=== PATIENT | male | born 1985 | race Caucasian/White ===

== ENCOUNTER 2018-05-19 10:58 | Emergency (ER) | payer BC ==
[2018-05-19 11:26] VITALS: TEMP 98.2; O2SAT 99
[2018-05-19 11:27] VITALS: BMI 33.6
[2018-05-19] MEDS ORDERED: Lidocaine/Epi 1% 1:100000 20 ML IJ STA (11:47)
[2018-05-19] MEDS ORDERED: Lidocaine 1% w Epi 1:100,000 Inj ONE (11:51)
--- NOTE | 2018-05-19 12:04 | ED PDOC ---
HPI: Wound Care - HPI Time Seen by Provider: 05/19/18 11:37 Chief Complaint (Nursing): Wound Check Chief Complaint (Provider): Wound Check History Per: Patient Exam Limitations: no limitations Location Of Injury: Left: Abdomen (abdominal wall) Additional Complaint(s): 32 years old male with no significant medical history presents to the ED for evaluation of infection to left lower abdominal wall that started initially as an ingrown hair. Patient reports redness, swelling and pain developed and he went to urgent care on Tuesday, where he was started on antibiotics. He states a blister formed later on top of redness and drained fluid every day. Patient reports fluid drainage was small and he is here because he is not sure if symptoms are improving. He denies any chills, fever, nausea, vomiting and abdominal pain. PMD: non provided Past Medical History Reviewed: Historical Data, Nursing Documentation, Vital Signs Vital Signs: Last Vital Signs Temp 98.2 F 05/19/18 11:24 Pulse 93 H 05/19/18 11:24 Resp 22 05/19/18 11:24 BP 158/99 H 05/19/18 11:24 Pulse Ox 99 05/19/18 11:24 - Medical History PMH: No Chronic Diseases - Surgical History Surgical History: No Surg Hx - Family History Family History: States: Unknown Family Hx - Social History Current smoker - smoking cessation education provided: No Alcohol: None Drugs: Denies - Allergies Allergies/Adverse Reactions: Allergies Allergy/AdvReac Type Severity Reaction Status Date / Time No Known Allergies Allergy Unverified 04/18/13 09:10 Review of Systems ROS Statement: Except As Marked, All Systems Reviewed And Found Negative Constitutional: Negative for: Fever, Chills Gastrointestinal: Positive for: Other (Left lower abdominal wall infection). Negative for: Nausea, Vomiting, Abdominal Pain Physical Exam - Reviewed Nursing Documentation Reviewed: Yes Vital Signs Reviewed: Yes - Physical Exam Appears: Positive for: Non-toxic, No Acute Distress Head Exam: Positive for: ATRAUMATIC, NORMOCEPHALIC Gastrointestinal/Abdominal: Positive for: Other (Area of induration with mild edema near the center. Loss of skin with small opening and little fluctance near induration. No discharge. ) Neurologic/Psych: Positive for: Alert, Oriented (x3) - ECG O2 Sat by Pulse Oximetry: 99 (RA) Pulse Ox Interpretation: Normal Procedure: Wound Repair - Time Performed Time Performed: 12:15 - Procedure Procedure: Wound Repair: I&D - Anesthetic Technique Local/Regional Anesthetic:: Lidocaine 1% w/epi Medical Decision Making Medical Decision Making: Time: 114 Initial Impression: Cellulitits, possible abscess Initial Plan: --Lidocaine/Epi 1% 10 ml IJ --I & D 1230 Patient was numbed with Lidocaine/Epi 1%. Bloody fluid and purulent drained after abscess I&D. Wound was packed with 1 inch stripes. Patient is instructed to follow up on Tuesday for wound check. Patient is feeling better, is medically stable, and requires no further treatment in the ED at this time. ----- Scribe Attestation: Documented by Chelsea Corona, acting as a scribe for Apolonia Mackenzie MD. Provider Scribe Attestation: All medical record entries made by the Scribe were at my direction and personally dictated by me. I have reviewed the chart and agree that the record accurately reflects my personal performance of the history, physical exam, medical decision making, and the department course for this patient. I have also personally directed, reviewed, and agree with the discharge instructions and disposition. Disposition - Clinical Impression Clinical Impression: Abscess, abdomen - Patient ED Disposition Is Patient to be Admitted: No Doctor Will See Patient In The: Office Counseled Patient/Family Regarding: Diagnosis, Need For Followup - Disposition Disposition: Routine/Home Disposition Time: 12:30 Condition: STABLE Additional Instructions: Continue with Clindamycin that is prescribed by urgent care. Followup in office or ER in 2-3 days. Instructions: Abscess Incision and Drainage Forms: [email or web address] (Serbian) - POA Present On Arrival: None
[2018-05-19 14:49] VITALS: BP 150/92; PULSE 90; RESP 18
== END 2018-05-19 14:05 | disposition home or self-care (01) ==
LOC: H.ER 10:58
DX: L02.211 Cutaneous abscess of abdominal wall (principal)

== ENCOUNTER 2018-05-21 11:20 | Emergency (ER) | payer BC ==
[2018-05-21 11:20] VITALS: BMI 33.6
[2018-05-21 11:24] VITALS: TEMP 98.2
--- NOTE | 2018-05-21 12:04 | ED PDOC ---
HPI: Wound Care - HPI Time Seen by Provider: 05/21/18 11:25 Chief Complaint (Nursing): Wound Check Chief Complaint (Provider): Wound Check History Per: Patient Exam Limitations: no limitations Location Of Injury: Left: Abdomen Additional Complaint(s): 32 years old male presents to the ED for wound check. Patient reports he had I& D to left abdominal wall on 05/19/18. He offers no medical complaints. PMD: non provided Past Medical History Reviewed: Historical Data, Nursing Documentation, Vital Signs Vital Signs: Last Vital Signs Temp 98.2 F 05/21/18 11:22 Pulse 86 05/21/18 11:22 Resp 17 05/21/18 11:22 BP 147/101 H 05/21/18 11:22 Pulse Ox 97 05/21/18 11:22 - Medical History PMH: No Chronic Diseases - Surgical History Surgical History: No Surg Hx - Family History Family History: States: Unknown Family Hx - Social History Current smoker - smoking cessation education provided: No Alcohol: Social Drugs: Denies - Allergies Allergies/Adverse Reactions: Allergies Allergy/AdvReac Type Severity Reaction Status Date / Time No Known Allergies Allergy Verified 05/21/18 11:59 Review of Systems ROS Statement: Except As Marked, All Systems Reviewed And Found Negative Constitutional: Negative for: Fever Gastrointestinal: Negative for: Abdominal Pain Physical Exam - Reviewed Nursing Documentation Reviewed: Yes Vital Signs Reviewed: Yes - Physical Exam Appears: Positive for: Non-toxic, No Acute Distress Head Exam: Positive for: ATRAUMATIC, NORMOCEPHALIC Skin: Positive for: Normal Color, Warm, Dry Gastrointestinal/Abdominal: Positive for: Normal Exam, Soft, Other (Left lower abdominal wall incision with packing in place, wound is dry. No crepitus, drainage or discharge.) Neurologic/Psych: Positive for: Alert, Oriented (x3) - ECG O2 Sat by Pulse Oximetry: 97 (RA) Pulse Ox Interpretation: Normal Medical Decision Making Medical Decision Making: Time: 1200 Changed packing. Patient tolerated procedure well and stable for discharge. ----- Scribe Attestation: Documented by Chelsea Corona, acting as a scribe for Renate Crooks MD. Provider Scribe Attestation: All medical record entries made by the Scribe were at my direction and personally dictated by me. I have reviewed the chart and agree that the record accurately reflects my personal performance of the history, physical exam, medical decision making, and the department course for this patient. I have also personally directed, reviewed, and agree with the discharge instructions and disposition. Disposition - Clinical Impression Clinical Impression: Change or removal of wound packing - Disposition Disposition: Routine/Home Disposition Time: 12:02 Condition: GOOD Additional Instructions: RETURN TO ED IN 2-3 DAYS FOR PACKING CHANGE. Instructions: Abscess Incision and Drainage (DC)
[2018-05-21 12:26] VITALS: BP 155/98; PULSE 85; RESP 18
[2018-05-23 14:25] VITALS: O2SAT 97
== END 2018-05-21 12:23 | disposition home or self-care (01) ==
LOC: H.ER 11:20
DX: Z48.00 Encounter for change or removal of nonsurgical wound dressing (principal)

== ENCOUNTER 2018-05-24 16:55 | Emergency (ER) | payer BC ==
[2018-05-24 16:55] VITALS: BMI 33.6
[2018-05-24 17:11] VITALS: BP 148/104; PULSE 84; RESP 18; TEMP 98.3; O2SAT 99
--- NOTE | 2018-05-24 17:59 | ED PDOC ---
HPI: Wound Care - HPI Time Seen by Provider: 05/24/18 17:33 Chief Complaint (Nursing): Wound Check Chief Complaint (Provider): Wound check History Per: Patient Exam Limitations: no limitations Onset/Duration Of Symptoms: Days (x1 week) Current Symptoms Are (Timing): Still Present Location Of Injury: Posterior: Abdomen Additional Complaint(s): Tarun Zaldivar is a 32 year old male, with no significant past medical history, who presents to the emergency department for wound check. Patient states over x1 week ago he developed an abscess, he was seen at an urgent care and was prescribed a 10-day course of Clindamycin which he already finished. Patient was seen 05/19 here, he had an I&D and the wound packed. Patient was seen again on 05/21 for wound repacking and was advised to come today for follow up. He denies any fever, chills or other medical complaints. PMD: None provided. Past Medical History Reviewed: Historical Data, Nursing Documentation, Vital Signs Vital Signs: Last Vital Signs Temp 98.3 F 05/24/18 17:08 Pulse 84 05/24/18 17:08 Resp 18 05/24/18 17:08 BP 148/104 H 05/24/18 17:08 Pulse Ox 99 05/24/18 17:08 - Medical History PMH: No Chronic Diseases - Surgical History Surgical History: No Surg Hx - Family History Family History: States: Unknown Family Hx - Allergies Allergies/Adverse Reactions: Allergies Allergy/AdvReac Type Severity Reaction Status Date / Time No Known Allergies Allergy Verified 05/24/18 17:11 Review of Systems ROS Statement: Except As Marked, All Systems Reviewed And Found Negative Constitutional: Positive for: Other (wound check) Physical Exam - Reviewed Nursing Documentation Reviewed: Yes Vital Signs Reviewed: Yes - Physical Exam Appears: Positive for: No Acute Distress Head Exam: Positive for: ATRAUMATIC, NORMOCEPHALIC Skin: Positive for: Normal Color, Warm, Dry Eye Exam: Positive for: Normal appearance Neck: Positive for: Painless ROM Gastrointestinal/Abdominal: Positive for: Other (well healing wound to left lower abdomen with minimal surrounding induration but no active drainage or fluctuance) Extremity: Positive for: Normal ROM (upper and lower extremities). Negative for : Deformity Neurologic/Psych: Positive for: Alert, Oriented - ECG O2 Sat by Pulse Oximetry: 99 (RA) Pulse Ox Interpretation: Normal Medical Decision Making Medical Decision Making: Time: 17:33 Initial Impression: Wound check Initial Plan: --The site was dressed with clean, dry, sterile dressing. Scribe Attestation: Documented by Benedicto Jeffers, acting as a scribe for Emili Palacio PA-C Provider Scribe Attestation: All medical record entries made by the Scribe were at my direction and personally dictated by me. I have reviewed the chart and agree that the record accurately reflects my personal performance of the history, physical exam, medical decision making, and the department course for this patient. I have also personally directed, reviewed, and agree with the discharge instructions and disposition. Disposition - Clinical Impression Clinical Impression: Encounter for wound re-check, Change or removal of wound packing - Patient ED Disposition Is Patient to be Admitted: No Doctor Will See Patient In The: Office Counseled Patient/Family Regarding: Need For Followup - Disposition Disposition: Routine/Home Disposition Time: 18:50 Condition: IMPROVED Instructions: Surgical Wound (DC) Forms: [employer] (Amharic)
== END 2018-05-24 19:29 | disposition home or self-care (01) ==
LOC: H.ER 16:55
DX: Z48.00 Encounter for change or removal of nonsurgical wound dressing (principal)